=== PATIENT | male | born 1955 | race Caucasian/White ===

== ENCOUNTER 2016-11-26 15:12 | Emergency (ER) | payer OTHER ==
[~2016-11-26] VITALS: Ht 174 cm; Wt 92.1 kg
[2016-11-26 15:17] VITALS: TEMP 36.8; Ht 174 cm; Wt 92.1 kg
[2016-11-26 15:26] VITALS: O2SAT 96
[2016-11-26 16:07] LABS: BASO % 0.4 %; BASO ABS # 0.03 K/uL (0-0.2); COMPLETE YES; EOS % 1.4 %; IG% 0.6 %; LYMPH % 19.4 %; LYMPH ABS # 1.36 K/uL (1.2-3.4); MEAN CELL VOLUME 84.7 fL (80-100); MEAN CORPUSCULAR HEMOGLOBIN 30.7 pg (25-34); MEAN CORPUSCULAR HGB CONC 36.2 g/dl (32-36); MEAN PLATELET VOLUME 10.9 fL (7.4-10.4); MONO % 6.8 %; NEUT % 71.4 %; PLATELET COUNT 155 K/uL (130-400); WHITE BLOOD COUNT 7.01 K/uL (4.8-10.8)
[2016-11-26 16:11] LABS: PARTIAL THROMBOPLASTIN RATIO 1.2; PROTHROMBIN TIME (PATIENT) 10.8 SECONDS (9.0-12.0)
--- NOTE | 2016-11-26 16:21 | DIAGNOSTIC IMAGING REPORT ---
SINGLE VIEW CHEST CLINICAL HISTORY: Fever. Sepsis. FINDINGS: 2 AP, portable, upright chest radiographs are obtained. No prior studies are available for comparison at the time of dictation. The examination is degraded by portable technique, apical lordotic positioning, and patient rotation. The patient is status post midline sternotomy. The heart is enlarged and there is atherosclerotic calcification of the thoracic aorta. The pulmonary vasculature is noncongested. There is no airspace consolidation or large pleural effusion. No pneumothorax is seen. The skeletal structures are osteopenic. The bony thorax is grossly intact. IMPRESSION: Cardiomegaly with no acute cardiopulmonary abnormality. Electronically signed by: Eduardo Vick M.D. 11/26/2016 4:20 PM Dictated Date/Time: 11/26/2016 4:19 PM
[2016-11-26] MEDS ORDERED: ACET-1256 PO (16:32)
[2016-11-26] MEDS ORDERED: SITA50TA3 PO (16:32)
[2016-11-26] MEDS ORDERED: [UNRECOGNIZED DRUG - OTHER] PO (16:32)
[2016-11-26] MEDS ORDERED: GLIP-199 PO (16:32)
[2016-11-26] MEDS ORDERED: IBUP-1050 PO (16:32)
[2016-11-26] MEDS ORDERED: ASPI81TA28 PO (16:38)
[2016-11-26 16:49] LABS: ALKALINE PHOSPHATASE 70 U/L (45-117); ALT/SGPT 43 U/L (12-78); AST/SGOT 15 U/L (15-37); BLOOD UREA NITROGEN 15 mg/dl (7-18); BUN/CREATININE RATIO 16.7 (10-20); CARBON DIOXIDE 31 mmol/L (21-32); CHLORIDE 105 mmol/L (98-107); CKMB/CK RATIO 1.3 (0-3.0); CREATININE 0.92 mg/dl (0.60-1.40); GLUCOSE 226 mg/dl (70-99); POTASSIUM 3.9 mmol/L (3.5-5.1); SODIUM 144 mmol/L (136-145)
--- NOTE | 2016-11-26 17:43 | EMERGENCY ROOM VISIT NOTE ---
History Report prepared by Reynaldo: Codie Farooq Under the Supervision of: Dr. Preston Ayoub D.O. First contact with patient: 15:47 Chief Complaint: HYPERTENSION Stated Complaint: HIGH BLOOD PRESSURE ABNORMAL EKG History of Present Illness The patient is a 61 year old male who presents to the Emergency Room with complaints of intermittent dizziness that began Monday. The patient states that on Monday he woke up and was feeling dizzy. He states that his dizziness had gone away, but states that he still noticed the dizziness with bending over. The patient states that he had been checking his blood pressure at home and noted that it was high. He states that since his symptoms have not completely subsided, he went to [facility] today. The patient states that he had an EKG done and was told to come to the emergency department for his abnormal EKG. He denies any chest pain or shortness of breath. Source of History: patient Onset: Monday Position: other (global) Quality: other (dizziness) Timing: intermittent Associated Symptoms: No SOB, No chest pain Note: Associated Symptoms: elevated blood pressure Review of Systems See HPI for pertinent positives & negatives. A total of 10 systems reviewed and were otherwise negative. Past Medical & Surgical Medical Problems: (1) Diabetes (2) Heart disease (3) Hypertension Surgical Problems: (1) History of open heart surgery (2) S/P triple vessel bypass Family History Diabetes mellitus Heart disease Hypertension Social History Smoking Status: Never Smoker Smokeless Tobacco Use: No Alcohol Use: none Marital Status: Housing Status: lives with significant other Occupation Status: employed Current/Historical Medications Scheduled Acetaminophen (Tylenol), 500 MG PO PRN UD Aspirin (Aspirin Ec), 4 TABS PO TODAY Glipizide (Glipizide Er), 1 TAB PO DAILY Ibuprofen (Advil), 200 MG PO PRN UD Sitagliptin (Januvia), Unknown Dose PO DAILY [Drug Study Med], 1 TAB PO DAILYBD Allergies Uncoded Allergies: STEROIDS (Allergy, Severe, HIVES, 11/26/16) Physical Exam Vital Signs Date Time Temp Pulse Resp B/P Pulse Ox O2 Delivery O2 Flow Rate FiO2 11/26/16 17:41 89 16 175/109 95 Room Air 11/26/16 16:41 86 16 150/96 97 Room Air 11/26/16 15:30 85 11/26/16 15:26 96 Room Air 11/26/16 15:17 36.8 85 18 202/101 98 Physical Exam CONSTITUTIONAL/VITAL SIGNS: Reviewed / noted above. GENERAL: Non-toxic in appearance. INTEGUMENTARY: Warm, dry, and [place]. HEAD: Normocephalic. EYES: without scleral icterus or trauma. ENT/OROPHARYNX: clear and moist. LYMPHADENOPATHY/NECK: Is supple without lymphadenopathy or meningismus. RESPIRATORY: Lungs clear and equal. CARDIOVASCULAR: Regular rate and rhythm. GI/ABDOMEN: Soft and nontender. No organomegaly or pulsatile mass. No rebound or guarding. Normal bowel sounds. EXTREMITIES: Warm and well perfused. BACK: No CVA tenderness. NEUROLOGICAL: Intact without focal deficits. PSYCHIATRIC: normal affect. MUSCULOSKELETAL: Normally developed with good muscle tone. Medical Decision & Procedures ER Provider Diagnostic Interpretation: X ray results and stated below per my interpretation and radiology interpretation. SINGLE VIEW CHEST CLINICAL HISTORY: Fever. Sepsis. FINDINGS: 2 AP, portable, upright chest radiographs are obtained. No prior studies are available for comparison at the time of dictation. The examination is degraded by portable technique, apical lordotic positioning, and patient rotation. The patient is status post midline sternotomy. The heart is enlarged and there is atherosclerotic calcification of the thoracic aorta. The pulmonary vasculature is noncongested. There is no airspace consolidation or large pleural effusion. No pneumothorax is seen. The skeletal structures are osteopenic. The bony thorax is grossly intact. IMPRESSION: Cardiomegaly with no acute cardiopulmonary abnormality. Electronically signed by: Eduardo Vick M.D. 11/26/2016 4:20 PM Dictated Date/Time: 11/26/2016 4:19 PM Laboratory Results 11/26/16 15:25 Red Blood Count 5.90, Mean Corpuscular Volume 84.7, Mean Corpuscular Hemoglobin 30.7, Mean Corpuscular Hemoglobin Concent 36.2, Mean Platelet Volume 10.9, Neutrophils (%) (Auto) 71.4, Lymphocytes (%) (Auto) 19.4, Monocytes (%) (Auto) 6.8, Eosinophils (%) (Auto) 1.4, Basophils (%) (Auto) 0.4, Neutrophils # (Auto) 5.00, Lymphocytes # (Auto) 1.36, Monocytes # (Auto) 0.48, Eosinophils # (Auto) 0.10, Basophils # (Auto) 0.03 11/26/16 15:25 Test 11/26/16 15:25 White Blood Count 7.01 K/uL (4.8-10.8) Red Blood Count 5.90 M/uL (4.7-6.1) Hemoglobin 18.1 g/dL (14.0-18.0) Hematocrit 50.0 % (42-52) Mean Corpuscular Volume 84.7 fL (80-100) Mean Corpuscular Hemoglobin 30.7 pg (25-34) Mean Corpuscular Hemoglobin Concent 36.2 g/dl (32-36) Platelet Count 155 K/uL (130-400) Mean Platelet Volume 10.9 fL (7.4-10.4) Neutrophils (%) (Auto) 71.4 % Lymphocytes (%) (Auto) 19.4 % Monocytes (%) (Auto) 6.8 % Eosinophils (%) (Auto) 1.4 % Basophils (%) (Auto) 0.4 % Neutrophils # (Auto) 5.00 K/uL (1.4-6.5) Lymphocytes # (Auto) 1.36 K/uL (1.2-3.4) Monocytes # (Auto) 0.48 K/uL (0.11-0.59) Eosinophils # (Auto) 0.10 K/uL (0-0.5) Basophils # (Auto) 0.03 K/uL (0-0.2) RDW Standard Deviation 39.7 fL (36.4-46.3) RDW Coefficient of Variation 13.0 % (11.5-14.5) Immature Granulocyte % (Auto) 0.6 % Immature Granulocyte # (Auto) 0.04 K/uL (0.00-0.02) Prothrombin Time 10.8 SECONDS (9.0-12.0) Prothromb Time International Ratio 1.0 (0.9-1.1) Activated Partial Thromboplast Time 29.9 SECONDS (21.0-31.0) Partial Thromboplastin Ratio 1.2 Anion Gap 8.0 mmol/L (3-11) Est Creatinine Clear Calc Drug Dose 96.1 ml/min Estimated GFR () 105.1 Estimated GFR (Non- 90.7 BUN/Creatinine Ratio 16.7 (10-20) Calcium Level 9.0 mg/dl (8.5-10.1) Total Bilirubin 1.1 mg/dl (0.2-1) Direct Bilirubin 0.2 mg/dl (0-0.2) Aspartate Amino Transf (AST/SGOT) 15 U/L (15-37) Alanine Aminotransferase (ALT/SGPT) 43 U/L (12-78) Alkaline Phosphatase 70 U/L (45-117) Total Creatine Kinase 63 U/L (39-308) Creatine Kinase MB 0.8 ng/ml (0.5-3.6) Creatine Kinase MB Ratio 1.3 (0-3.0) Troponin I < 0.015 ng/ml (0-0.045) Total Protein 7.2 gm/dl (6.4-8.2) Albumin 4.3 gm/dl (3.4-5.0) Lipase 265 U/L (73-393) Thyroid Stimulating Hormone (TSH) 0.880 uIu/ml (0.300-4.500) Laboratory results as stated above per my review. ECG Indication: other (dizziness) Rate (beats per minute): 85 Rhythm: normal sinus Findings: RBBB, T-wave inversion (inferior-lateral) Comparison ECG Date: no prior available ED Course 1605: Previous medical records were reviewed. The patient was evaluated in room A12B. A complete history and physical examination was performed. 1744: I reevaluated the patient and he is resting comfortably. I discussed the exam findings with him and I discussed the treatment plan. He verbalized complete understanding and agreement. He is ready to go home. Medical Decision the differential was considered includes acute myocardial infarction, acute coronary syndrome, myocarditis, pericarditis, pericardial effusions /tamponade, esophageal perforation, thoracic aortic dissection, pulmonary embolism, pneumonia, pneumothorax, pancreatitis, shingles, acute cholecystitis, perforated abdominal viscus. This is a 61-year-old male who presents to the ED with a chief complaint of hypertension. The patient states that he has been a little dizzy with bending over the past week or so. He is been checking his blood pressure at home and is been slightly high. The patient reports that he went to [facility] and was referred here for an abnormal EKG. Denies any chest pains or shortness of breath or other symptoms. His initial blood pressure was 202/101. When I saw the patient, his blood pressure was 150/96. His physical exam was unremarkable. His CBC is normal as is his complete metabolic panel. Troponin is negative. TSH was normal. A chest x-ray did not show acute disease. EKG shows a sinus rhythm with a right [id number] pattern. There are some T wave inversions inferior. I suspect these are chronic changes. No old EKG is available for comparison. The patient was felt to be stable for discharge and outpatient follow-up. The patient did report that he has been eating TV dinners daily for 5 days a week for the past 4 months. This might contribute to his elevated blood pressures. The patient will follow-up with his doctor this week for recheck. He states that he will change his diet. Impression Primary Impression: Hypertension Scribe Attestation The scribe's documentation has been prepared under my direction and personally reviewed by me in its entirety. I confirm that the note above accurately reflects all work, treatment, procedures, and medical decision making performed by me. Departure Information Dispostion Home / Self-Care Referrals Samm Burgos M.D. (PCP) Forms HOME CARE DOCUMENTATION FORM, IMPORTANT VISIT INFORMATION, WORK / SCHOOL INSTRUCTIONS Patient Instructions Hypertension In, My [facility] Additional Instructions Follow-up with your doctor for recheck this week. Follow-up with your doctor for further care and evaluation in 1-2 days. Return to the emergency department for worsening or new symptoms or any concerns. You have been examined and treated today on an emergency basis only. This is not a substitute for, or an effort to provide, complete comprehensive medical care. It is impossible to recognize and treat all injuries or illnesses in a single emergency department visit. It is therefore important that you follow up closely with your doctor. Call as soon as possible for an appointment.
[2016-11-26 18:13] VITALS: BP 189/96; PULSE 87; O2SAT 96
== END 2016-11-26 18:14 | disposition home or self-care (01) ==
LOC: C.EDB 15:14 → C.EDA 18:14
DX: I10 Essential (primary) hypertension (principal); E11.9 Type 2 diabetes mellitus without complications; I51.9 Heart disease, unspecified; Z83.3 Family history of diabetes mellitus; Z82.49 Family history of ischemic heart disease and other diseases of the circulatory system